=== PATIENT | female | born 1970 | race African-American/Black ===

== ENCOUNTER 2020-01-14 06:11 | Emergency (ER) | payer BC ==
[~2020-01-14] VITALS: Ht 152.4 cm; Wt 92.5 kg
--- OUTSIDE RECORDS SUMMARY | 2020-01-14 06:13 | XMS REPORT ---
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 Allergies, Adverse Reactions, Alerts This patient has no known allergies or adverse reactions. Medications This patient has no known medications. Results Test Description Test Time Test Comments Text Results Atomic Results Result Comments ANTI-MITOCHONDRIAL AB, REFLEX TO TITER 2018-08-12 10:27:00 SCAN RESULT (test [id number]=[id number]) EBV ANTIBODY, [id number] 11:48:00* Test Item Value Reference Range Comments ANTIONETTE RUCKER VIRAL CAPSID ANTIGEN IGG (BEAKER) (test wkbs=2927) Positive Negative, Equivocal Antionette Rucker Viral Capsid Antigen IgG Result Interpretation: </=0.8 Al Negative 0.9-1.0 Al Equivocal >/=1.1 Al PositiveCYTOMEGALOVIRUS ANTIBODY, [id number] 11:48:00* Test Item Value Reference Range Comments CYTOMEGALOVIRUS, IGG (BEAKER) (test hyog=2406) Positive Negative, Equivocal CMV IgG Result Interpretation: </=0.8 Al Negative 0.9-1.0 Al Equivocal >/=1.1 Al PositiveHEPATITIS B SURFACE [id number] 15:35:00* Test Item Value Reference Range Comments HEPATITIS B SURFACE ANTIBODY (BEAKER) (test aezb=515) < mIU/mL <8.0 HEPATITIS B CORE ANTIBODY, [id number] 15:32:00* Test Item Value Reference Range Comments HEPATITIS B CORE TOTAL ANTIBODY (BEAKER) (test jmfq=210) Nonreactive Nonreactive HEPATITIS A ANTIBODY, [id number] 15:32:00* Test Item Value Reference Range Comments HEPATITIS A IGG ANTIBODY (BEAKER) (test cjpr=4512) Nonreactive Nonreactive LACTATE DEHYDROGENASE (LDH)2018-08-07 15:12:00* Test Item Value Reference Range Comments LACTATE DEHYDROGENASE (BEAKER) (test koye=841) 169 U/L 125-220 HEPATIC FUNCTION [id number] 15:12:00* Test Item Value Reference Range Comments TOTAL PROTEIN (BEAKER) (test bdnu=774) 9.0 gm/dL 6.0-8.3 ALBUMIN (BEAKER) (test nnyp=4159) 4.3 g/dL 3.5-5.0 BILIRUBIN TOTAL (BEAKER) (test nvmj=303) 0.4 mg/dL 0.2-1.2 BILIRUBIN DIRECT (BEAKER) (test vyzq=607) 0.2 mg/dL 0.1-0.5 ALKALINE PHOSPHATASE (BEAKER) (test gakc=118) 113 U/L 40-150 AST (SGOT) (BEAKER) (test hdld=038) 16 U/L 5-34 ALT (SGPT) (BEAKER) (test sqvw=067) 11 U/L 6-55
[2020-01-14 06:46] LABS: BASOPHILS % 0.1 % (0.0-1.0); EOSINOPHILS # (AUTO) 0.1 (0.0-0.4); EOSINOPHILS % 0.5 % (0.0-6.0); HEMATOCRIT 40.6 % (34.2-44.1); LYMPHOCYTES # (AUTO) 0.8 (1.0-3.2); LYMPHOCYTES % 7.9 % (18.0-39.1); MEAN CORPUSCULAR HEMOGLOBIN 29.3 pg (28-32); MEAN CORPUSCULAR VOLUME 91.6 fL (81-99); MONOCYTES # (AUTO) 0.6 (0.2-0.8); NEUTROPHILS # (AUTO) 8.2 (2.1-6.9); PLATELET COUNT 258 x10e3/uL (140-360); RED BLOOD COUNT 4.43 x10e6/uL (3.6-5.1); RED CELL DISTRIBUTION WIDTH 12.4 % (11.7-14.4)
[2020-01-14 07:11] LABS: ALANINE AMINOTRANSFERASE 82 IU/L (0-55); ALBUMIN 3.6 g/dL (3.5-5.0); ALBUMIN/GLOBULIN RATIO 0.9 (0.8-2.0); ALKALINE PHOSPHATASE 140 IU/L (40-150); ANION GAP 12.3 mmol/L (8-16); BLOOD UREA NITROGEN 15 mg/dL (7-26); BUN/CREATININE RATIO 18 (6-25); CALCIUM 8.6 mg/dL (8.4-10.2); CARBON DIOXIDE 29 mmol/L (22-29); CHLORIDE 104 mmol/L (98-107); CREATINE KINASE 71 IU/L (29-168); CREATININE, SERUM 0.83 mg/dL (0.57-1.11); EST GLOMERULAR FILTRATION RATE > 60 ML/MIN (60-); GLUCOSE 108 mg/dL (74-118); POTASSIUM 4.3 mmol/L (3.5-5.1); SODIUM 141 mmol/L (136-145)
[2020-01-14 07:23] LABS: CLARITY,URINE HAZY (CLEAR); COLOR,URINE YELLOW (YELLOW)
[2020-01-14 07:24] LABS: BILIRUBIN,URINE NEGATIVE (NEGATIVE); KETONES,URINE NEGATIVE (NEGATIVE); LEUKOCYTE ESTERASE ,URINE NEGATIVE (NEGATIVE); NITRITE,URINE NEGATIVE (NEGATIVE); PROTEIN,URINE DIPSTICK NEGATIVE (NEGATIVE); URINE UROBILINOGEN 0.2 mg/dL (0.2 - 1)
[2020-01-14] MEDS ORDERED: DONNATAL/LIDOCAINE/MAALOX 30 ML SUSP PO STA (07:27)
[2020-01-14] MEDS ORDERED: SODIUM CHLORIDE 0.9% 1000ML 1,000 ML IV STA (07:27)
[2020-01-14] MEDS ORDERED: ONDANSETRON HCL INJ 2MG/ML 2ML 2 MG/ML VIAL IV STA (07:27)
[2020-01-14] MEDS ORDERED: KETOROLAC TROMETHAMINE 30 MG/ML VIAL IV STA (07:27)
[2020-01-14 07:33] LABS: AMYLASE 77 U/L (25-125); LIPASE 23 U/L (8-78)
[2020-01-14 07:46] LABS: RBC,URINE 0-5 /HPF (0-5); WBC,URINE (MAN) 0-5 /HPF (0-5)
[2020-01-14 07:47] LABS: BACTERIA,URINE MODERATE /HPF; EPITHELIAL CELLS,URINE FEW /LPF
--- NOTE | 2020-01-14 08:32 | Diagnostic Imaging Report ---
Examination: Single AP view of the chest. COMPARISON: None. INDICATION: Epigastric pain DISCUSSION: The lungs are well inflated. No focal consolidation, pleural effusion, or pneumothorax. Cardiomediastinal contour and pulmonary vasculature are within normal limits when accounting for portable AP technique. No acute osseous abnormalities. IMPRESSION: No acute cardiopulmonary abnormality. Signed by: Dr. Sacha Guy M.D. on 01/14/2020 8:29 AM
[2020-01-14] MEDS ORDERED: LOMOTIL TABLET1 EACH PO (09:18)
[2020-01-14] MEDS ORDERED: PREDNISONE20 MG PO (09:18)
[2020-01-14] MEDS ORDERED: AZITHROMYCIN500 MG PO (09:18)
[2020-01-14] MEDS ORDERED: BACTRIM DS TAB1 EACH PO (09:18)
[2020-01-14] MEDS ORDERED: ONDANSETRON ODT8 MG PO (09:18)
== END 2020-01-14 09:41 | disposition home or self-care (01) ==
LOC: ER 06:11
DX: R10.13 Epigastric pain (principal); R11.2 Nausea with vomiting, unspecified; E86.0 Dehydration; A04.9 Bacterial intestinal infection, unspecified; K52.9 Noninfective gastroenteritis and colitis, unspecified; N39.0 Urinary tract infection, site not specified; J02.9 Acute pharyngitis, unspecified
CPT/HCPCS: 36415; 71045; 80053; 81001; 82150; 82550; 82553; 83690; 83735; 84484; 85025; 93005; 99284; J1885; J2405; J7030

== ENCOUNTER 2021-11-20 00:55 | Emergency (ER) | payer BC ==
[~2021-11-20] VITALS: Ht 152.4 cm; Wt 96.2 kg
[~2021-11-20 00:55] MED LIST: AZITHROMYCIN500 MG PO; BACTRIM DS TAB1 EACH PO; LOMOTIL TABLET1 EACH PO; ONDANSETRON ODT8 MG PO; PREDNISONE20 MG PO
[2021-11-20 02:24] VITALS: BP 164/86
== END 2021-11-20 02:32 | disposition home or self-care (01) ==
LOC: ER 01:01
DX: B34.9 Viral infection, unspecified (principal); Z20.822 Contact with and (suspected) exposure to COVID-19; E78.5 Hyperlipidemia, unspecified; E28.2 Polycystic ovarian syndrome
CPT/HCPCS: 99282; U0002

== ENCOUNTER 2021-11-21 10:45 | Emergency (ER) | payer BC ==
[~2021-11-21] VITALS: Ht 152.4 cm; Wt 96.2 kg
[2021-11-21] MEDS ORDERED: MECLIZINE HCL 12.5 MG TAB PO PRN (11:15)
[2021-11-21] MEDS ORDERED: SODIUM CHLORIDE 0.9% 1000ML 1,000 ML IV SCH (11:15)
[2021-11-21] MEDS ORDERED: ONDANSETRON HCL INJ 2MG/ML 2ML 2 MG/ML VIAL IV STA (11:15)
[2021-11-21 12:38] LABS: BASOPHILS % 0.4 % (0.0-1.0); EOSINOPHILS % 0.1 % (0.0-6.0); HEMATOCRIT 50.6 % (34.2-44.1); LYMPHOCYTES % 29.2 % (18.0-39.1); MEAN CORPUSCULAR HEMOGLOBIN 28.4 pg (28-32); MEAN CORPUSCULAR HGB CONC 29.6 g/dL (31-35); MEAN CORPUSCULAR VOLUME 95.8 fL (81-99); MONOCYTES # (AUTO) 0.4 (0.2-0.8); MONOCYTES % 6.3 % (4.4-11.3); NEUTROPHILS # (AUTO) 4.5 (2.1-6.9); NEUTROPHILS % 63.7 % (38.7-80.0); PLATELET COUNT 209 x10e3/uL (140-360); RED BLOOD COUNT 5.28 x10e6/uL (3.6-5.1); RED CELL DISTRIBUTION WIDTH 13.2 % (11.7-14.4)
[2021-11-21 12:55] LABS: ALBUMIN 4.1 g/dL (3.5-5.0); ALBUMIN/GLOBULIN RATIO 0.8 (0.8-2.0); ANION GAP 18.8 mmol/L (8-16); CALCIUM 10.3 mg/dL (8.4-10.2); CREATININE, SERUM 0.9 mg/dL (0.57-1.11); POTASSIUM 4.8 mmol/L (3.5-5.1)
[2021-11-21 13:01] LABS: CREATINE KINASE MB 0.9 ng/mL (0-5.0)
[2021-11-21 13:16] LABS: CLARITY,URINE CLEAR (CLEAR); COLOR,URINE YELLOW (YELLOW); KETONES,URINE NEGATIVE (NEGATIVE); LEUKOCYTE ESTERASE ,URINE NEGATIVE (NEGATIVE); NITRITE,URINE NEGATIVE (NEGATIVE); PROTEIN,URINE DIPSTICK NEGATIVE (NEGATIVE); URINE UROBILINOGEN 0.2 mg/dL (0.2 - 1)
[2021-11-21 13:28] LABS: EPITHELIAL CELLS,URINE RARE /LPF; RBC,URINE 0-5 /HPF (0-5); WBC,URINE (MAN) 0-5 /HPF (0-5)
[2021-11-21] MEDS ORDERED: KETOROLAC TROMETHAMINE 30 MG/ML VIAL IV STA (13:43)
[2021-11-21 14:04] VITALS: BP 109/71
== END 2021-11-21 14:14 | disposition home or self-care (01) ==
LOC: ER 11:07
DX: R42 Dizziness and giddiness (principal); I10 Essential (primary) hypertension; E78.5 Hyperlipidemia, unspecified; E28.2 Polycystic ovarian syndrome
CPT/HCPCS: 36415; 70450; 71045; 80053; 81001; 82550; 82553; 83735; 83880; 84484; 85025; 93005; 99284; J1885; J2405; J7030; J8597